=== PATIENT | female | born 2000 | race Caucasian/White ===

== ENCOUNTER 2022-04-16 00:52 | Emergency (ER) | payer SELFPAY ==
[~2022-04-16] VITALS: Ht 152.4 cm; Wt 59.2 kg
[2022-04-16 03:08] VITALS: BP 109/76
== END 2022-04-16 07:16 | disposition left against medical advice (07) ==
LOC: ER 00:58
DX: J02.9 Acute pharyngitis, unspecified (principal); R13.10 Dysphagia, unspecified; Z53.21 Procedure and treatment not carried out due to patient leaving prior to being seen by health care provider

== ENCOUNTER 2023-08-19 00:47 | Emergency (ER) | payer OTHER ==
[~2023-08-19] VITALS: Ht 152.4 cm; Wt 61.7 kg
[2023-08-19 01:44] LABS: Basophils # (auto) 0.1 10 ^3/uL (0-0.2); Basophils % (auto) 0.4 % (0.0-2.0); Eosinophils # (auto) 0.2 10 ^3/uL (0-0.8); Eosinophils % (auto) 1.3 % (0.0-7.0); Hemoglobin 12.5 g/dL (12.2-16.2); Lymphocytes # (auto) 2.7 10 ^3/uL (0.4-5.4); Lymphocytes % (auto) 21.2 % (10.0-50.0); Mean Corpuscular Hemoglobin 28.9 pg (28.0-32.0); Mean Corpuscular Volume 87.7 fL (80.0-100.0); Monocytes # (auto) 0.7 10 ^3/uL (0-1.3); Monocytes % (auto) 5.4 % (0.0-12.0); Neutrophils % (auto) 71.7 % (37.0-80.0); Nucleated Red Blood Cells % 0.1 %; Red Blood Cells 4.34 10^6/uL (4.0-5.20); Red Cell Distribution Width 12.7 % (11.8-14.3); White Blood Cell 12.5 10^3/uL (4.4-10.8)
[2023-08-19 02:03] LABS: Alanine Aminotransferase 24 U/L (7-40); Albumin 4.7 g/dL (3.2-4.8); Alkaline Phosphatase 75 U/L (46-116); Anion Gap 6 (5-15); Aspartate Aminotransferase 12 U/L (13-40); BUN/Creatinine Ratio 8.8 (10.0-20.0); Bilirubin, Total 0.6 mg/dL (0.2-1.0); Blood Urea Nitrogen 7 mg/dL (9-23); Calcium 9.3 mg/dL (8.7-10.4); Carbon Dioxide 27 mmol/L (20-30); Chloride 106 mmol/L (98-107); Glucose 100 mg/dL (74-106); Lipase 26 U/L (12-53); Magnesium 2.1 mg/dL (1.6-2.6); Potassium 3.5 mmol/L (3.5-5.1); Sodium 139 mmol/L (136-145); Total Protein 7.5 g/dL (5.7-8.2)
[2023-08-19] MEDS ORDERED: HYDROcodone-ACET 5/325MG TAB PO ONE (05:00)
[2023-08-19 05:05] VITALS: TEMP 98.3; O2SAT 98
[2023-08-19] MEDS ORDERED: SODIUM CHLORIDE 0.9% 1,000 ML IV ONE (07:00)
[2023-08-19] MEDS ORDERED: PIPERACILLIN-TAZO 4.5GM 100 ML IV ONE (07:00)
[2023-08-19] MEDS ORDERED: MORPHINE SULFATE 4 MG/ML SYR/VIAL IV ONE (07:30)
[2023-08-19] MEDS ORDERED: ONDANSETRON HCL 4 MG/2 ML VIAL IV ONE (07:30)
[2023-08-19 08:56] VITALS: BP 97/46; PULSE 67; RESP 16
== END 2023-08-19 09:15 | disposition left against medical advice (07) ==
LOC: ER 00:47
DX: K35.80 Unspecified acute appendicitis (principal); R10.2 Pelvic and perineal pain; Z88.2 Allergy status to sulfonamides
CPT/HCPCS: 36415; 74176; 80053; 83690; 83735; 84702; 85025; 96361; 96374; 96375; 99285; J2270; J2405; J2543; J7030

== ENCOUNTER 2025-06-25 23:30 | Emergency (ER) | payer OTHER ==
[~2025-06-25] VITALS: Ht 152.4 cm; Wt 59.0 kg
--- NOTE | 2025-06-26 00:02 | ED.PDOC ---
History of Present Illness HPI Comments 24-year-old female presents with chief complaint of laceration to her left hand and right wrist. Patient reports on getting injured after being bitten by accident when her 2 pet dogs that were fighting, earlier, this evening. Bleeding is controlled. She denies any further injuries or acute symp toms at this time. She has no reported pertinent medical history. Vaccination status of the animals are up to date Chief Complaint: Animal Bite Time Seen by MD: 23:35 Reviewed Notes: Nurses Notes, Medications, Allergies Allergies: Coded Allergies: Sulfa Antibiotics (Verified Allergy, Unknown, 08/19/23) Information Source: Patient Mode of Arrival: Ambulatory Severity: Moderate Timing: Hours Duration: Since onset Prehospital treatment: None Past Medical History PAST MEDICAL HISTORY: Denies Surgical History: Denies all surgeries HIDE HANDLER History: No Pertinent HIDE HANDLER History Family History Family History: Reviewed,noncontributory to illness, Family hx of heart christopher, Family hx of lung christopher Social History Smoker: Non-Smoker Alcohol: Denies ETOH Use Drugs: Denies Drug Use Lives In: Home All Other Systems: Reviewed and Negative (Comprehensive review of systems are negative pus otherwise stated in HPI) Physical Exam General Appearance: No Apparent Distress, Normal HEENT: Normal ENT Inspection, Pharynx Normal, TMs Normal Neck: Full Range of Motion, Non-Tender, Normal, Normal Inspection Respiratory: Chest Non-Tender, Lungs Clear, No Accessory Muscle Use, No Respiratory Distress, Normal Breath Sounds Cardiovascular: No Edema, No JVD, No Murmur, No Gallop, Normal Peripheral Pulses, Regular Rate/Rhythm Breast Exam: Deferred Gastrointestinal: No Organomegaly, Non Tender, No Pulsatile Mass, Normal Bowel Sounds, Soft Genitalia: Deferred Pelvic: Deferred Rectal: Deferred Extremities: No calf tenderness, Normal capillary refill, Normal inspection, Normal range of motion, Non-tender, No pedal edema Musculoskeletal : Apperance: Normal Neurologic: Alert, aluminum siding installer II-XII nml as Tested, No Motor Deficits, Normal Affect, Normal Mood, No Sensory Deficits Cerebellar Function: Normal Reflexes: Normal Skin: Dry, Normal Color, Warm Lymphatic: No Adenopathy Was a procedure done? Was a procedure done?: No Differential Dx Considerations may include: Puncture wound, lacerations, avulsions, contusions, retained foreign body, among others X-Ray, Labs, Meds, VS Vital Signs Date Time Temp Pulse Resp B/P (MAP) Pulse Ox O2 Delivery O2 Flow Rate FiO2 06/25/25 23:39 98.5 104 16 115/83 100 98.5 Time of 1ST Reevaluation: : Reevaluation 1ST: Unchanged Time of 2ND Reevaluation: Reevaluation 2ND: Improved Patient Education/Counseling: Diagnosis, Treatment, Need For Follow Up Family Education/Counseling: No Family Present SEPSIS Sepsis Screen Date sepsis recognized/suspect: Jun 25, 2025 Time Sepsis recognized/suspect: 2340 Recent Procedure: No On Antibiotic Therapy: No Respiratory Rate >20: No Heart Rate >90: Yes Temp<36 C (96.8 F) or >38.3 C: No SBP <90 or MAP <65 mmHG: No New Acute Mental Status Change: No Is the patient on CPAP, BIPAP,: No Physician Orders L Hand 3v Xray (06/26/25 00:44) R Hand 3 View Xray (06/26/25 00:44) R Wrist 3+ View Xray (06/26/25 00:44) L Knee 3v Xray (06/26/25 00:44) Vital Signs Date Time Temp Pulse Resp B/P (MAP) Pulse Ox O2 Delivery O2 Flow Rate FiO2 06/25/25 23:39 98.5 104 16 115/83 100 98.5 Departure 1 Departure Time of Disposition: Impression: Primary Impression: Dog bite Qualified Codes: W54.0XXA - Bitten by dog, initial encounter Disposition: HOME / SELF CARE / HOMELESS Condition: Stable e-Prescriptions Ibuprofen (Ibuprofen) 800 Mg Tab 800 MG PO Q8HP PRN for 5 Days, #15 TAB Prov: JOE MANJARREZ [employer] 06/26/25 Amoxicillin & Pot Clavulanate (AUGMENTIN TABLET) 875 Mg Tb 875 MG PO BID for 7 Days, #14 TAB Prov: JOE MANJARREZ [employer] 06/26/25 Discharged With: Self Critical Care Note Critical Care Time?: No Stability Stability form required: No Heart Score Heart Score: Heart Score Response (Comments) Value History N/A 0 EKG N/A 0 Age N/A 0 Risk Factors N/A 0 Troponin N/A 0 Total 0 I personally scribed for ER ([email or web address]) on 06/26/25 at 00:02. Electronically submitted by Felipe Kraft ([email or web address]). ER Jun 26, 2025 00:02 JOE MANJARREZ Jun 26, 2025 01:28
--- NOTE | 2025-06-26 01:10 | DVH ---
CLINICAL INDICATION: Injury/pain TECHNIQUE: XY L KNEE 3V XRAY Comparison: XY R WRIST 3+ VIEW XRAY on DOS: 06/26/25, XY L HAND 3V XRAY on DOS: 06/26/25, XY R HAND 3 V IEW XRAY on DOS: 06/26/25 FINDINGS/IMPRESSION: : There is no evidence of acute fracture or dislocation. Soft tissues are unremarkable.
--- NOTE | 2025-06-26 01:11 | DVH ---
CLINICAL INDICATION: Dog bite TECHNIQUE: XY L HAND 3V XRAY Comparison: XY L KNEE 3V XRAY on DOS: 06/26/25, XY R WRIST 3+ VIEW XRAY on DOS: 06/26/25, XY R HAND 3 V IEW XRAY on DOS: 06/26/25 FINDINGS/IMPRESSION: : There is no evidence of acute fracture or dislocation. Soft tissues are unremarkable.
--- NOTE | 2025-06-26 01:11 | DVH ---
CLINICAL INDICATION: Dog bite TECHNIQUE: XY R WRIST 3+ VIEW XRAY, XY R HAND 3 VIEW XRAY Comparison: XY L KNEE 3V XRAY on DOS: 06/26/25, XY L HAND 3V XRAY on DOS: 06/26/25, XY R HAND 3 VIEW XR AY on DOS: 06/26/25 FINDINGS/IMPRESSION: : There is no evidence of acute fracture or dislocation. Soft tissues are unremarkable.
[2025-06-26] MEDS ORDERED: IBUP-1456 PO (01:33)
[2025-06-26] MEDS ORDERED: AUG875T PO (01:33)
[2025-06-26 01:44] VITALS: BP 112/78; PULSE 88; RESP 18; TEMP 98; O2SAT 98
[2025-06-26] MEDS ORDERED: HYDROcodone-ACET 5/325MG TAB PO ONE (01:45)
== END 2025-06-26 01:44 | disposition home or self-care (01) ==
LOC: ER 23:30
DX: S61.452A Open bite of left hand, initial encounter (principal); Z88.2 Allergy status to sulfonamides; W54.0XXA Bitten by dog, initial encounter; Y93.89 Activity, other specified; Y92.89 Other specified places as the place of occurrence of the external cause; Y99.8 Other external cause status
CPT/HCPCS: 73110; 73130; 73562